=== PATIENT | female | born 1970 | race Caucasian/White ===

== ENCOUNTER 2016-06-20 06:58 | Day surgery (SDC) | payer BC ==
[2016-06-19 11:24] LABS: BASOPHILS 0.4 % (0.0-2.0); EOSINOPHILS 0.9 % (0-7); HEMATOCRIT 41.2 % (36.0-48.0); HEMOGLOBIN 13.6 g/dL (12-16); IMMATURE GRANULOCYTES 0.2 % (0-5); LYMPHOCYTES 30.4 % (15-50); MCH 30.6 pg (26.0-34.0); MCV 92.8 fL (80.0-100.0); MEAN PLATELET VOLUME 10.7 fL (7.4-10.4); MONOCYTES 5.9 % (2-11); NEUTROPHILS 62.2 % (40-80); PLATELET COUNT 256 10x3/uL (130-400); RBC 4.44 10x6/uL (4.00-5.40); RDW 12.4 % (11.5-14.5); WBC 5.4 10x3/uL (4.8-10.8)
[2016-06-19 11:31] LABS: APTT 32.8 SECONDS (22.8-39.4); INR 0.95 (0.85-1.17); PROTIME 12.6 SECONDS (11.6-15.0)
[~2016-06-20] VITALS: Ht 165.1 cm; Wt 77.1 kg
[~2016-06-20 06:58] MED LIST: AMBIEN10 MG PO; ARMOUR THYROID30 MG PO; DEMEROL50 MG PO; HORMONE CREAM; NP THYROID30 MG PO; PHENERGAN25 MG/ML PO; SSD20 GM TP
[2016-06-20 09:07] VITALS: BP 116/74; Ht 165.1 cm; Wt 77.1 kg
[2016-06-20] MEDS ORDERED: PERCOCET 10/3251 TA1 PO (11:59)
--- NOTE | 2016-06-20 12:14 | NUR ---
[facility] ADMIN FOR SHAKING
--- NOTE | 2016-06-20 13:51 | NUR ---
1325- IV D/C'D, PT TOLERATED. CATHETER INTACT. 1330- UP OOB TO BR, VOIDED WITHOUT DIFFICULTY 1345- PAPERWORK COMPLETED 1350- HOME VIA WHEELCHAIR WITH FAMILY
--- NOTE | 2016-06-27 12:19 | OP ---
PATIENT NAME: LEO PATINO MEDICAL RECORD: [id number] :66 [facility] DATE: SURGEON: AAKASH RODRIGUEZ MD DATE OF OPERATION: 06/20/2016 PREOPERATIVE DIAGNOSIS: Left knee medial meniscus tear. POSTOPERATIVE DIAGNOSIS: Left knee medial meniscus tear. PROCEDURE PERFORMED: Left knee partial medial meniscectomy. SURGEON: Kobe Rodriguez MD ANESTHESIA: General. CONDITION: She tolerated the procedure well, was transferred to the recovery room in stable condition at termination of the procedure. INDICATIONS: This is a pleasant 45-year-old female that has had a slip and fall and significant pain and swelling in her knee. The MRI showed an undersurface posterior medial meniscus tear. We discussed risks, benefits, and alternatives to surgery and she understood and wished to proceed. OPERATIVE REPORT: The patient was taken to the operating room and placed in supine position. General anesthesia was obtained. She was prepped and draped in normal fashion. Portal sites were marked and then injected with 0.25% Marcaine with epinephrine. I established the anterolateral portal for the scope and inflow and the superior medial portal for the outflow. I then proceeded to check the patellofemoral joint, which looked good and the outflow was noted, checking down the medial gutter into the medial joint line, she notably had a previous partial meniscectomy and I then established an anterior medial portal under direct visualization. At this juncture, I probed the medial meniscus, I did find a horizontal cleavage that extended significant portion of the undersurface, and this was debrided. I took this back to a stable edge, but she did have a fairly significant amount of tearing noted in the tissues. 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 Moving to the notch, her ACL and PCL were notably intact and going to the lateral side, her lateral meniscus was intact. There were no lesions noted and the cartilage looked very good and side. Once I debrided the medial meniscectomy, I just checked the knee further, I did not find any other lesions; therefore, I brought the case to a close. She was closed with 3-0 Prolene, injected with Duramorph and Marcaine plain. She tolerated it well and was transferred to recovery room in stable condition. All sponge and needle counts were correct. TRANSINT:[id number] Voice Confirmation ID: [id number] DOCUMENT ID: [id number] OPERATIVE REPORT [id number] LEO PATINO, AAKASH DHALIWAL MD at 1219 CC: [id number] DICTATION DATE: 06/20/16 1203 SAND BUFFER: 06/20/[id number] [facility] 06/20/16 [place] [id number] [place] [id number]
== END 2016-06-20 13:50 | disposition home or self-care (01) ==
LOC: D.OPS 06:58 → D.PAN 11:30 → D.OPS 13:50
PROVIDERS: Anesthesiology
DX: S83.242A Other tear of medial meniscus, current injury, left knee, initial encounter (principal); M94.262 Chondromalacia, left knee

== ENCOUNTER → 2016-12-13 16:57 | Outpatient (CLI) | payer BC ==
[2016-06-20 09:07] VITALS: BMI 28.3
[~2016-12-13 16:57] MED LIST changes: +PERCOCET 10/3251 TA1 PO
== END | disposition home or self-care (01) ==
LOC: D.MAMMO 09:30
DX: Z12.31 Encounter for screening mammogram for malignant neoplasm of breast (principal)